=== PATIENT | female | born 1990 | race Caucasian/White ===

== ENCOUNTER → 2023-12-20 | Outpatient (CLI) | payer OTHER ==
[2023-12-20 11:17] LABS: BASO % 0.4 % (0.0-1.0); EOS # 0.1 10^3/uL (0.0-0.5); EOS % 1.5 % (0.0-3.0); HEMATOCRIT 38.4 % (36.0-47.0); HEMOGLOBIN 12.2 g/dl (12.0-15.5); LYMPH # 2.4 10^3/uL (1.5-5.0); LYMPH % 43.5 % (24.0-44.0); MEAN CORPUSCULAR HEMOGLOBIN 27.9 pg (27.0-33.0); MEAN CORPUSCULAR HGB CONC 31.8 g/dl (32.0-36.5); MEAN CORPUSCULAR VOLUME 87.7 fl (80.0-96.0); MONO # 0.4 10^3/uL (0.0-0.8); MONO % 6.5 % (2.0-8.0); NEUTROPHILS # 2.6 10^3/uL (1.5-8.5); NEUTROPHILS % 47.7 % (36.0-66.0); PLATELET COUNT, AUTOMATED 233 10^3/uL (150-450); RED BLOOD COUNT 4.38 10^6/uL (4.00-5.40); WHITE BLOOD COUNT 5.5 10^3/uL (4.0-10.0)
[2023-12-20 11:28] LABS: HEMOGLOBIN A1c 5.2 % (4.0-6.0)
[2023-12-20 11:49] LABS: IRON (FE) 94 UG/DL (50-170); PERCENT SATURATION 25.8 % (13.2-45.0); TOTAL IRON BINDING CAPACITY 365 UG/DL (250-425)
[2023-12-20 11:51] LABS: ALBUMIN 3.9 G/DL (3.2-5.2); ALKALINE PHOSPHATASE 52 U/L (46-116); ALT/SGPT 26 U/L (7.0-40); AST/SGOT 28 U/L (<34); BILIRUBIN,TOTAL 0.3 MG/DL (0.3-1.2); BLOOD UREA NITROGEN 18 MG/DL (9-23); CARBON DIOXIDE LEVEL 30 MMOL/L (20-31); CHLORIDE LEVEL 103 MMOL/L (98-107); CHOLESTEROL LEVEL 182 MG/DL (<200); CHOLESTEROL RISK RATIO 3.44 (<5); CREATININE FOR GFR 1.01 MG/DL (0.55-1.30); GLOMERULAR FILTRATION RATE > 60.0 (>60); GLUCOSE, FASTING 114 MG/DL (60-100); HDL CHOLESTEROL 52.8 MG/DL (>40); LDL CHOLESTEROL 99.4 MG/DL (<100); NON-HDL-C 129.2 MG/DL; POTASSIUM SERUM 4.4 MMOL/L (3.5-5.1); SODIUM LEVEL 138 MMOL/L (136-145); TOTAL PROTEIN 6.8 G/DL (5.7-8.2); TRIGLYCERIDES LEVEL 149 MG/DL (<150)
[2023-12-20 11:52] LABS: FREE T4 0.97 NG/DL (0.89-1.76)
== END ==
LOC: M LAB 10:18
PROVIDERS: ATTEND Nurse Practitioner Adult Health
DX: Z00.8 Encounter for other general examination (principal)

== ENCOUNTER 2023-12-30 11:59 | Emergency (ER) | payer OTHER ==
[~2023-12-30] VITALS: Ht 162.6 cm; Wt 73.1 kg
[2023-12-30] MEDS ORDERED: METH5TA PO (12:48)
[2023-12-30] MEDS ORDERED: IBUP200C25 PO (13:31)
[2023-12-30 14:00] LABS: RSV AMPLIFICATION NEGATIVE (NEGATIVE)
[2023-12-30] MEDS ORDERED: NS 1,000 ML IV ONE (14:15)
[2023-12-30] MEDS ORDERED: KETOROLAC 30 MG/ML 1ML VIAL IV ONE (14:15)
[2023-12-30] MEDS ORDERED: METOCLOPRAMIDE INJ 10MG/2ML VIAL IV ONE (14:15)
[2023-12-30 14:49] VITALS: BP 118/81; TEMP 97.3; O2SAT 97
[2023-12-30] MEDS ORDERED: REGL10TA6 PO (15:04)
[2023-12-30] MEDS ORDERED: KETO10TAB PO (15:04)
[2023-12-30] MEDS ORDERED: FLON1SPR NARES (15:04)
[2023-12-30] MEDS: KETOROLAC TROMETHAMINE 10 MG TAB PO ONE (15:26)
[2023-12-30] MEDS: METOCLOPRAMIDE 10MG TAB PO ONE (15:26)
== END 2023-12-30 15:31 | disposition home or self-care (01) ==
LOC: M ED 11:59
DX: J01.90 Acute sinusitis, unspecified (principal); R51.9 Headache, unspecified; Z88.8 Allergy status to other drugs, medicaments and biological substances; Z79.1 Long term (current) use of non-steroidal anti-inflammatories (NSAID); Z79.899 Other long term (current) drug therapy

== ENCOUNTER 2024-08-03 19:48 | Emergency (ER) | payer OTHER ==
[~2024-08-03] VITALS: Ht 162.6 cm; Wt 77.0 kg
[~2024-08-03 19:48] MED LIST: FLON1SPR NARES; IBUP200C25 PO; KETO10TAB PO; METH5TA PO; REGL10TA6 PO
[2024-08-03] MEDS ORDERED: SENN-186 (19:55)
[2024-08-03] MEDS ORDERED: FLUO-365 (19:55)
[2024-08-03] MEDS ORDERED: ACET-683 PO (19:55)
[2024-08-03] MEDS ORDERED: GABA-284 (19:55)
[2024-08-03] MEDS ORDERED: CLON0.5T2 (19:55)
[2024-08-03] MEDS ORDERED: ONDA-84 (19:56)
[2024-08-03] MEDS ORDERED: METF10004 (19:56)
[2024-08-03] MEDS: IBUPROFEN 600MG TAB PO ONE (23:38)
[2024-08-04 00:23] LABS: KETONE, URINE AUTO RFX NEGATIVE (NEGATIVE); NITRITE, URINE AUTO RFX NEGATIVE (NEGATIVE); RBC, URINE AUTO RFX 0 /HPF (0-3); SQUAM EPITHELIAL CELL UR AURFX 1 /HPF (0-6); WBC, URINE AUTO RFX 1 /HPF (0-3)
[2024-08-04 00:25] LABS: LEUKOCYTE ESTERASE UR AUTO RFX TRACE (NEGATIVE)
[2024-08-04 00:51] LABS: Trichomonas vaginalis (AMP) NOT DETECTED (NEGATIVE)
[2024-08-04 01:14] LABS: GC DNA AMPLIFICATION NEGATIVE (NEGATIVE)
[2024-08-04 01:30] VITALS: BP 105/74; TEMP 96.6; O2SAT 96
== END 2024-08-04 01:30 | disposition home or self-care (01) ==
LOC: M ED 19:48
DX: R51.9 Headache, unspecified (principal); B19.20 Unspecified viral hepatitis C without hepatic coma; F17.200 Nicotine dependence, unspecified, uncomplicated; Z88.8 Allergy status to other drugs, medicaments and biological substances; Z79.899 Other long term (current) drug therapy; Z79.83 Long term (current) use of bisphosphonates

== ENCOUNTER 2025-02-25 15:51 | Emergency (ER) | payer OTHER ==
[~2025-02-25] VITALS: Ht 162.6 cm; Wt 63.6 kg
[~2025-02-25 15:51] MED LIST changes: +ACET-683 PO; +CLON0.5T2; +FLUO-365; +GABA-284; +METF10004; +ONDA-84; +SENN-186
[2025-02-25 15:54] VITALS: BP 119/75; TEMP 97.6; O2SAT 97
[2025-02-25] MEDS: TETANUS/DIPHTH/ACEL. PERTUSSIS 0.5 ML SYR IM ONE (16:32)
== END 2025-02-25 16:42 | disposition home or self-care (01) ==
LOC: M ED 15:51
DX: S61.213A Laceration without foreign body of left middle finger without damage to nail, initial encounter (principal); W26.9XXA Contact with unspecified sharp object(s), initial encounter; B19.20 Unspecified viral hepatitis C without hepatic coma; F17.200 Nicotine dependence, unspecified, uncomplicated; Z88.8 Allergy status to other drugs, medicaments and biological substances; Z79.1 Long term (current) use of non-steroidal anti-inflammatories (NSAID); Z79.899 Other long term (current) drug therapy; Z79.4 Long term (current) use of insulin; Y92.89 Other specified places as the place of occurrence of the external cause; Y93.89 Activity, other specified; Y99.0 Civilian activity done for income or pay; Z23 Encounter for immunization